=== PATIENT | male | born 1990 | race Caucasian/White ===

== ENCOUNTER 2017-04-21 09:43 | Emergency (ER) | payer OTHER ==
[~2017-04-21] VITALS: Ht 185.4 cm; Wt 82.0 kg
[~2017-04-21 09:43] MED LIST: DICL-86 PO; IBUP400T20 PO; LORT5TAB PO
[2017-04-21 09:50] VITALS: BP 151/63; PULSE 114; RESP 16; TEMP 99.9; O2SAT 97
[2017-04-21] MEDS ORDERED: DICL75TA PO (11:22)
[2017-04-21] MEDS ORDERED: ROBA500T PO (11:22)
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
== END 2017-04-21 11:29 | disposition home or self-care (01) ==
LOC: PHED 09:43 → PHEFT 11:29
DX: S29.019A Strain of muscle and tendon of unspecified wall of thorax, initial encounter (principal); S13.4XXA Sprain of ligaments of cervical spine, initial encounter; V49.49XA Driver injured in collision with other motor vehicles in traffic accident, initial encounter
CPT/HCPCS: 99283